=== PATIENT | male | born 1970 | race Caucasian/White ===

== ENCOUNTER 2023-03-07 20:17 | Emergency (ER) | payer SELFPAY ==
[~2023-03-07] VITALS: Ht 177.8 cm; Wt 79.4 kg
[2023-03-07 20:55] LABS: BASOPHILS % (AUTO) 0.4 % (0.0-2.0); EOSINOPHILS # (AUTO) 0.2 K/uL (0.0-0.7); EOSINOPHILS % (AUTO) 2.6 % (0.0-6.0); HEMATOCRIT 47 % (39-51); LYMPHOCYTES # (AUTO) 1.4 K/uL (0.8-4.8); MEAN CORPUSCULAR HEMOGLOBIN 29 PG (26.0-33.0); MEAN CORPUSCULAR HGB CONC 34 g/dl (31.0-36.0); MEAN CORPUSCULAR VOLUME 87 fL (80-96); MONOCYTES # (AUTO) 0.6 K/uL (0.1-1.30); MONOCYTES % (AUTO) 6.8 % (2.0-12.0); NEUTROPHILS # (AUTO) 6.2 K/uL (1.8-8.9); NEUTROPHILS % (AUTO) 74.2 % (43.0-81.0); PLATELET COUNT (AUTO) 184 K/uL (150-450); RED BLOOD CELL COUNT(AUTO) 5.43 MIL/uL (4.5-6.0); RED CELL DISTRIBUTION WIDTH 13.8 % (11.5-15.0); WHITE BLOOD COUNT (AUTO) 8.4 K/uL (4.3-11.0)
[2023-03-07 21:08] LABS: CALCIUM, SERUM 8.8 mg/dL (8.5-10.1); CARBON DIOXIDE 27 mmol/L (21-32); CHLORIDE 104 mmol/L (98-107); GLUCOSE 109 mg/dL (74-106); POTASSIUM 3.8 mmol/L (3.5-5.1); SODIUM SERUM 140 mmol/L (136-145); UREA NITROGEN, BLOOD 19 mg/dL (7-18)
[2023-03-07 21:18] LABS: ALANINE AMINOTRANSFERASE 43 U/L (12-78); ALBUMIN 3.9 g/dL (3.4-5.0); ALKALINE PHOSPHATASE 58 U/L (46-116); ASPARTATE AMINOTRANSFERASE 22 U/L (15-37); BILIRUBIN,DIRECT 0.2 mg/dL (0.0-0.2); BILIRUBIN,TOTAL 0.7 mg/dL (0.2-1.0); TOTAL PROTEIN, SERUM 7.5 g/dL (6.4-8.2)
[2023-03-07] MEDS ORDERED: ONDANSETRON HCL/PF 4 MG/2 ML VIAL ONE (21:24)
[2023-03-07] MEDS ORDERED: FAMOTIDINE (20 MG) 20 MG TABLET ONE (21:25)
[2023-03-07] MEDS: ONDANSETRON HCL/PF 4 MG/2 ML VIAL IVP ONE (21:32)
[2023-03-07] MEDS: IV NS 0.9% 1,000 ML BAG IV ONE (21:32)
[2023-03-07] MEDS: FAMOTIDINE (20 MG) 20 MG TABLET PO ONE (21:33)
[2023-03-07] MEDS ORDERED: PANT40TA49 PO (23:01)
[2023-03-07] MEDS ORDERED: ONDA4TAB11 PO (23:01)
[2023-03-07] MEDS ORDERED: PANTOPRAZOLE 40 MG TABLET.DR PO ONE (23:48)
[2023-03-07] MEDS: PANTOPRAZOLE 40 MG TABLET.DR PO ONE (23:51)
[2023-03-08 01:31] VITALS: BP 125/80; TEMP 98.3; O2SAT 98
== END 2023-03-08 01:32 | disposition home or self-care (01) ==
LOC: ER 20:17
DX: K52.9 Noninfective gastroenteritis and colitis, unspecified (principal)
CPT/HCPCS: 99285; 96374; 71045; 96361; 93005 ×2; 85025; 80048; 80076; 36415 ×2; 84484 ×2; J2405; J7030